=== PATIENT | female | born 1995 ===

== ENCOUNTER 2022-04-24 11:05 | Outpatient (CLI) | payer OTHER | END 2022-04-24 12:35 | disposition home or self-care (01) | LOC: PRENATAL 11:05 | PROVIDERS: ATTEND Obstetrics & Gynecology Maternal & Fetal Medicine | DX: O35.0XX0 Maternal care for (suspected) central nervous system malformation in fetus, not applicable or unspecified (principal); O35.3XX0 Maternal care for (suspected) damage to fetus from viral disease in mother, not applicable or unspecified; O28.1 Abnormal biochemical finding on antenatal screening of mother; Z3A.22 22 weeks gestation of pregnancy ==